=== PATIENT | male | born 1980 ===

== ENCOUNTER → 2018-06-26 | Outpatient (CLI) | payer OTHER ==
[2018-06-26 18:09] LABS: CHOLESTEROL RISK RATIO 9.5
[2018-06-26 18:40] LABS: THYROID STIMULATING HORMONE 1.46 uIU/mL (0.465-4.680)
[2018-06-27 08:35] LABS: ALANINE AMINOTRANSFERASE 45 U/L (21-72); AST,SGOT 30 U/L (15-37)
== END ==
LOC: ZCOL.LAB 17:27
PROVIDERS: Family Medicine
DX: Z13.1 Encounter for screening for diabetes mellitus (principal); Z13.220 Encounter for screening for lipoid disorders; E66.9 Obesity, unspecified

== ENCOUNTER 2018-08-30 20:53 | Emergency (ER) | payer OTHER ==
[~2018-08-30] VITALS: Ht 182.9 cm; Wt 109.1 kg
[2018-08-30 21:02] VITALS: BP 133/94; PULSE 94; TEMP 97.3
[2018-08-30] MEDS ORDERED: TRIAM OI 0.1 80 TOP (21:26)
[2018-08-30] MEDS ORDERED: MEDROL 4MG DOSPA4 MG PO (21:26)
== END 2018-08-30 21:55 | disposition home or self-care (01) ==
LOC: COL.ER 20:53
DX: S09.8XXA Other specified injuries of head, initial encounter (principal); L25.9 Unspecified contact dermatitis, unspecified cause; E78.5 Hyperlipidemia, unspecified; Z23 Encounter for immunization; W22.8XXA Striking against or struck by other objects, initial encounter; Y92.009 Unspecified place in unspecified non-institutional (private) residence as the place of occurrence of the external cause